=== PATIENT | female | born 1980 | race African-American/Black ===

== ENCOUNTER 2021-04-05 08:52 | Emergency (ER) | payer OTHER ==
[~2021-04-05] VITALS: Ht 162.6 cm; Wt 68.0 kg
[~2021-04-05 08:52] MED LIST: ACETAMINOPHEN-120 ML PO; AFLEXERYL-LC 41 EACH TOP; AUGMENTIN 875875 MG PO; CYCLOBENZAPRINE5 MG PO; FLEXERIL PO; FLONASE 0.05%50 MCG NASAL; IBUPROFEN 800800 M1 PO; MEDROXYPROGESTERONE; MOBIC15 MG PO; NAPROSYN500 MG PO; NOHOMEMEDICATIONS; NORCO 5-325 TA1 EACH PO; PERCOCET 5-3251 EACH PO; VENTOLIN HFA INH8 GM IH
[2021-04-05] MEDS ORDERED: MOBIC15 MG PO (11:02)
[2021-04-05 11:11] VITALS: BP 148/91
== END 2021-04-05 11:11 | disposition home or self-care (01) ==
LOC: ER 08:52
DX: S30.0XXA Contusion of lower back and pelvis, initial encounter (principal); Z90.81 Acquired absence of spleen; W07.XXXA Fall from chair, initial encounter; Y93.89 Activity, other specified; Y92.89 Other specified places as the place of occurrence of the external cause; Y99.8 Other external cause status